=== PATIENT | female | born 1960 | race Caucasian/White ===

== ENCOUNTER 2021-08-26 09:01 | Emergency (ER) | payer BC ==
[~2021-08-26] VITALS: Ht 162.5 cm; Wt 97.5 kg
[2021-08-26 10:07] LABS: BASO % 0.6 % (0.0-1.0); EOS % 0.1 % (1.0-4.0); HEMATOCRIT 40.5 % (37.0-47.0); LYMPH # 1.3 10*3/uL (1.3-4.4); MEAN CELL VOLUME 90.4 fl (81.0-99.0); MEAN CORPUSCULAR HGB 30.4 pg (27.0-31.0); MEAN CORPUSCULAR HGB CONC 33.6 g/dl (33.0-37.0); MEAN PLATELET VOLUME 10.6 fl (9.6-12.3); MONO # 0.7 10*3/uL (0.1-1.0); MONO % 9.8 % (3.0-9.0); NEUT # 4.7 10*3/uL (2.3-7.9); NEUT % 70.1 % (47.0-73.0); PLATELET COUNT AUTOMATED 121 10*3/uL (130-400); RED BLOOD COUNT 4.48 10*6/uL (4.10-5.10); WHITE BLOOD COUNT 6.7 10*3/uL (4.8-10.8)
[2021-08-26 10:20] LABS: ALKALINE PHOSPHATASE 113 U/L (45-117); BUN 23 mg/dl (7-24); CHLORIDE 102 mmol/L (98-107); CREATININE 1.05 mg/dL (0.55-1.02); POTASSIUM 3.8 mmol/L (3.5-5.1); SGOT/AST 30 IU/L (3-35); SGPT/ALT 30 U/L (12-78); SODIUM 134 mmol/L (136-145); TOTAL PROTEIN 6.9 gm/dL (6.4-8.2)
== END 2021-08-26 12:50 | disposition home or self-care (01) ==
LOC: ED 09:01
PROVIDERS: Internal Medicine
DX: U07.1 COVID-19 (principal); Z88.1 Allergy status to other antibiotic agents; Z90.89 Acquired absence of other organs; Z90.711 Acquired absence of uterus with remaining cervical stump

== ENCOUNTER 2022-08-07 08:03 | Emergency (ER) | payer OTHER ==
[~2022-08-07] VITALS: Wt 101.4 kg
[2022-08-07 08:45] LABS: BASO % 0.1 % (0.0-1.0); EOS # 0.2 10*3/uL (0.0-0.4); EOS % 2.6 % (1.0-4.0); HEMATOCRIT 43.3 % (37.0-47.0); LYMPH # 1.1 10*3/uL (1.3-4.4); LYMPH % 11.6 % (27.0-41.0); MEAN CELL VOLUME 84.7 fl (81.0-99.0); MEAN CORPUSCULAR HGB 27.2 pg (27.0-31.0); MEAN CORPUSCULAR HGB CONC 32.1 g/dl (33.0-37.0); MEAN PLATELET VOLUME 10.1 fl (9.6-12.3); MONO # 0.5 10*3/uL (0.1-1.0); MONO % 5.7 % (3.0-9.0); NEUT # 7.4 10*3/uL (2.3-7.9); NEUT % 79.7 % (47.0-73.0); PLATELET COUNT AUTOMATED 135 10*3/uL (130-400); RED BLOOD COUNT 5.11 10*6/uL (4.10-5.10); WHITE BLOOD COUNT 9.3 10*3/uL (4.8-10.8)
[2022-08-07 09:01] LABS: ACT PARTIAL THROMBO TIME 33.1 SECONDS (20.0-32.1)
[2022-08-07 09:03] LABS: ALKALINE PHOSPHATASE 73 U/L (46-116); BUN 33 mg/dl (9-23); CHLORIDE 99 mmol/L (98-107); CREATININE 0.98 mg/dL (0.55-1.02); MYOGLOBIN 290.3 ng/ml (13-71); POTASSIUM 3.8 mmol/L (3.4-5.1); SGPT/ALT 18 U/L (10-49); TOTAL PROTEIN 6.7 gm/dL (6.0-8.0)
== END 2022-08-07 14:45 | disposition short-term general hospital (02) ==
LOC: ED 08:03
PROVIDERS: Family Medicine
DX: I21.4 Non-ST elevation (NSTEMI) myocardial infarction (principal); E16.2 Hypoglycemia, unspecified; Z88.8 Allergy status to other drugs, medicaments and biological substances; Z90.710 Acquired absence of both cervix and uterus; Z98.890 Other specified postprocedural states; Z20.822 Contact with and (suspected) exposure to COVID-19; C50.919 Malignant neoplasm of unspecified site of unspecified female breast; Z88.1 Allergy status to other antibiotic agents

== ENCOUNTER 2024-03-17 22:10 | Emergency (ER) | payer MEDICARE ==
[~2024-03-17] VITALS: Ht 162.5 cm; Wt 108.9 kg
[~2024-03-17 22:10] MED LIST: ASPIRIN ADULT L81 M1 PO; BUMETANIDE1 MG PO; CLOPIDOGREL75 MG PO; CRESTOR5 M1 PO; CYCLOBENZAPRINE10 MG PO; DECARA1250 MCG PO; GLIMEPIRIDE4 M1 PO; HYCODAN 5 MG-1.55 ML PO; JARDIANCE25 MG PO; LANTUS SOL100 UNIT/1 SQ; LOPRESSOR25 MG PO; MIDODRINE HCL5 M1 PO; MIRAPEX0.5 MG PO; NEURONTIN300 MG PO; NEURONTIN600 MG PO; NITROSTAT0.4 MG SL; NOVOLOG100 UNIT/1 SC; PERCOCET 7.5-31 EACH PO; POTASSIUM CHLO10 ME4 PO; PROAIR DIGIHAL90 MCG INH; PROCHLORPERAZIN10 MG PO; PROTONIX40 MG PO; SYNTHROID,LEV175 MCG PO; TRULICITY3 MG/0.5 M SQ; ZITHROMAX250 MG PO
[2024-03-17 22:42] LABS: BASO # 0.1 10*3/uL (0.0-0.1); BASO % 0.6 % (0.0-1.0); EOS # 0.4 10*3/uL (0.0-0.4); EOS % 5.1 % (1.0-4.0); HEMATOCRIT 36.8 % (37.0-47.0); LYMPH # 3.6 10*3/uL (1.3-4.4); MEAN CELL VOLUME 85.8 fl (81.0-99.0); MEAN CORPUSCULAR HGB 28.4 pg (27.0-31.0); MEAN CORPUSCULAR HGB CONC 33.2 g/dl (33.0-37.0); MEAN PLATELET VOLUME 10.1 fl (9.6-12.3); MONO # 0.6 10*3/uL (0.1-1.0); MONO % 6.9 % (3.0-9.0); NEUT % 46.1 % (47.0-73.0); PLATELET COUNT AUTOMATED 152 10*3/uL (130-400); RED BLOOD COUNT 4.29 10*6/uL (4.10-5.10); RED CELL DISTRI WIDTH 16.5 % (0-14.5); WHITE BLOOD COUNT 8.7 10*3/uL (4.8-10.8)
[2024-03-17 23:03] LABS: POTASSIUM 4.1 mmol/L (3.4-5.1); TOTAL PROTEIN 6.6 gm/dL (6.0-8.0)
[2024-03-18] MEDS ORDERED: Ketorolac Tromethamine 30 MG/ML VIAL IM ONE (01:30)
== END 2024-03-18 01:35 | disposition home or self-care (01) ==
LOC: ED 22:10
PROVIDERS: Internal Medicine
DX: R07.89 Other chest pain (principal); R68.84 Jaw pain; I25.2 Old myocardial infarction; N18.9 Chronic kidney disease, unspecified; N17.9 Acute kidney failure, unspecified; Z88.8 Allergy status to other drugs, medicaments and biological substances; Z90.710 Acquired absence of both cervix and uterus; Z98.890 Other specified postprocedural states

== ENCOUNTER 2024-11-06 15:09 | Inpatient (IN) | payer MEDICARE ==
[~2024-11-06] VITALS: Ht 160 cm; Wt 114.8 kg
[2024-11-06 15:13] VITALS: BP 124/59
[2024-11-06] MEDS ORDERED: Dicyclomine Hydrochloride 10 MG CAP PO ONE (15:25)
[2024-11-06] MEDS ORDERED: diphenhydrAMINE hydrochloride 50 MG/ML VIAL IV ONE (15:30)
[2024-11-06] MEDS ORDERED: Metoclopramide Hydrochloride 10 MG/2 ML VIAL IV ONE (15:30)
[2024-11-06] MEDS ORDERED: MORPHINE Sulfate 2 MG/ML SYR IV ONE (15:30)
[2024-11-06] MEDS ORDERED: SODIUM CHLORIDE 0.9% 1,000 ML IV ONE (15:35)
[2024-11-06 15:45] LABS: BASO % 0.2 % (0.0-1.0); EOS # 0.2 10*3/uL (0.0-0.4); EOS % 2.8 % (1.0-4.0); HEMATOCRIT 45.5 % (37.0-47.0); MEAN CELL VOLUME 88.3 fl (81.0-99.0); MEAN CORPUSCULAR HGB 27.2 pg (27.0-31.0); MEAN CORPUSCULAR HGB CONC 30.8 g/dl (33.0-37.0); MONO # 0.6 10*3/uL (0.1-1.0); MONO % 7.6 % (3.0-9.0); NEUT # 4.8 10*3/uL (2.3-7.9); NEUT % 57.8 % (47.0-73.0); PLATELET COUNT AUTOMATED 196 10*3/uL (130-400); RED BLOOD COUNT 5.15 10*6/uL (4.10-5.10); RED CELL DISTRI WIDTH 13.5 % (0-14.5); WHITE BLOOD COUNT 8.3 10*3/uL (4.8-10.8)
[2024-11-06 15:50] LABS: VENOUS BLOOD GAS O2 SAT 52.7 % (60.0-85.0)
[2024-11-06 16:05] LABS: POTASSIUM 4.8 mmol/L (3.4-5.1); TOTAL PROTEIN 7.7 gm/dL (6.0-8.0)
[2024-11-06 16:30] VITALS: BP 121/57
[2024-11-06] MEDS ORDERED: fentaNYL CITRATE 100 MCG/2 ML VIAL IV ONE (16:40)
[2024-11-06] MEDS ORDERED: CYCLOBENZAPRINE5 M3 PO (16:48)
[2024-11-06] MEDS ORDERED: OXYCODONE-ACET1 EACH PO (16:49)
[2024-11-06] MEDS ORDERED: POTASSIUM CHLO10 ME5 PO (16:49)
[2024-11-06] MEDS ORDERED: MOUNJARO2.5 MG/0.1 SQ (16:49)
[2024-11-06] MEDS ORDERED: PLAVIX75 M1 PO (16:50)
[2024-11-06] MEDS ORDERED: TOPIRAMATE25 M1 PO (16:50)
[2024-11-06] MEDS ORDERED: VITAMIN D250 MCG PO (16:51)
[2024-11-06] MEDS ORDERED: LEVOTHYROXINE175 MCG PO (16:51)
[2024-11-06] MEDS ORDERED: ROSUVASTATIN CA40 MG PO (16:51)
[2024-11-06] MEDS ORDERED: GRALISE900 MG PO (16:51)
[2024-11-06] MEDS ORDERED: ACETAMINOPHEN 650 MG SUPP R PRN (18:15)
[2024-11-06] MEDS ORDERED: ACETAMINOPHEN 325 MG TAB PO PRN (18:15)
[2024-11-06] MEDS ORDERED: MORPHINE Sulfate 2 MG/ML SYR IV PRN (18:15)
[2024-11-06] MEDS ORDERED: SODIUM CHLORIDE 0.9% 1,000 ML IV SCH (18:20)
[2024-11-06] MEDS ORDERED: Prochlorperazine Edisylate 10 MG/2 ML VIAL IV PRN (18:20)
[2024-11-06 19:11] VITALS: BP 122/57
[2024-11-06] MEDS ORDERED: Cyclobenzaprine Hydrochlorid 10 MG TAB PO PRN (19:55)
[2024-11-06 21:12] VITALS: BP 131/53
[2024-11-06 21:30] VITALS: BP 118/47
[2024-11-06] MEDS ORDERED: GABAPENTIN 300 MG CAP PO SCH (22:00)
[2024-11-07] MEDS ORDERED: Levothyroxine Sodium 175 MCG TAB PO SCH (06:00)
[2024-11-07] MEDS ORDERED: Pantoprazole Sodium 40 MG TAB PO SCH (06:00)
[2024-11-07 06:43] LABS: FREE T4 0.88 ng/dl (0.89-1.76); TOTAL PROTEIN 6.4 gm/dL (6.0-8.0); VITAMIN D, 25-HYDROXY 33.5 ng/mL (30-100)
[2024-11-07 06:45] LABS: POTASSIUM 3.6 mmol/L (3.4-5.1)
[2024-11-07 06:47] LABS: BASO % 0.1 % (0.0-1.0); EOS # 0.4 10*3/uL (0.0-0.4); EOS % 4.6 % (1.0-4.0); HEMATOCRIT 36.2 % (37.0-47.0); MEAN CELL VOLUME 86.6 fl (81.0-99.0); MEAN CORPUSCULAR HGB 28.2 pg (27.0-31.0); MEAN CORPUSCULAR HGB CONC 32.6 g/dl (33.0-37.0); MEAN PLATELET VOLUME 10.6 fl (9.6-12.3); MONO # 0.9 10*3/uL (0.1-1.0); MONO % 10.5 % (3.0-9.0); NEUT # 4.1 10*3/uL (2.3-7.9); NEUT % 49.2 % (47.0-73.0); PLATELET COUNT AUTOMATED 167 10*3/uL (130-400); RED BLOOD COUNT 4.18 10*6/uL (4.10-5.10); RED CELL DISTRI WIDTH 14.2 % (0-14.5); WHITE BLOOD COUNT 8.3 10*3/uL (4.8-10.8)
[2024-11-07 08:00] VITALS: BP 105/54
[2024-11-07] MEDS ORDERED: TOPIRAMATE 25 MG TAB PO SCH (10:00)
[2024-11-07] MEDS ORDERED: Clopidogrel Hydrogen Sulfate 75 MG TAB PO SCH (10:00)
[2024-11-07] MEDS ORDERED: Enoxaparin Sodium 40 MG/0.4 ML SYR SC SCH (10:00)
[2024-11-07] MEDS ORDERED: Rosuvastatin Calcium 10 MG TABLET PO SCH (10:00)
[2024-11-07] MEDS ORDERED: SODIUM CHLORIDE 0.9% 1,000 ML IV ONE (11:35)
[2024-11-07 12:00] VITALS: BP 103/43
[2024-11-07 14:36] LABS: BILIRUBIN Negative (Negative); BLOOD Negative (Negative); CLARITY Clear (Clear); COLOR Yellow (Yellow); GLUCOSE Negative (Negative); KETONE Trace (Negative); LEUKO ESTERASE 1+ (Negative); NITRITE Negative (Negative); SPECIFIC GRAVITY 1.025 (1.001-1.030); UROBILINOGEN 0.2 E.U./dl (0.0-1.0)
[2024-11-07 14:47] LABS: BACTERIA 2+
[2024-11-07 16:00] VITALS: BP 136/60
[2024-11-07 20:00] VITALS: BP 128/54
[2024-11-07] MEDS ORDERED: VANCOMYCIN HCL 125 MG CAPSULE PO SCH (22:00)
[2024-11-08] VITALS: BP 135/56
[2024-11-08] MEDS ORDERED: Levothyroxine Sodium 200 MCG TAB PO SCH (06:00)
[2024-11-08 06:25] LABS: BASO % 0.1 % (0.0-1.0); EOS # 0.4 10*3/uL (0.0-0.4); EOS % 5.4 % (1.0-4.0); HEMATOCRIT 36.8 % (37.0-47.0); MEAN CELL VOLUME 86.2 fl (81.0-99.0); MEAN CORPUSCULAR HGB 27.9 pg (27.0-31.0); MEAN CORPUSCULAR HGB CONC 32.3 g/dl (33.0-37.0); MEAN PLATELET VOLUME 10.2 fl (9.6-12.3); MONO # 0.6 10*3/uL (0.1-1.0); MONO % 7.7 % (3.0-9.0); NEUT # 4.1 10*3/uL (2.3-7.9); NEUT % 49.8 % (47.0-73.0); PLATELET COUNT AUTOMATED 187 10*3/uL (130-400); RED BLOOD COUNT 4.27 10*6/uL (4.10-5.10); RED CELL DISTRI WIDTH 13.7 % (0-14.5); WHITE BLOOD COUNT 8.2 10*3/uL (4.8-10.8)
[2024-11-08 07:13] LABS: POTASSIUM 3.5 mmol/L (3.4-5.1)
[2024-11-08 08:00] VITALS: BP 110/33
[2024-11-08 12:00] VITALS: BP 139/54
[2024-11-08 16:00] VITALS: BP 125/54
[2024-11-08 20:00] VITALS: BP 125/54; BP 139/61
[2024-11-09] VITALS: BP 127/57; BP 136/63
[2024-11-09 04:00] VITALS: BP 123/58
[2024-11-09 05:42] LABS: POTASSIUM 3.2 mmol/L (3.4-5.1)
[2024-11-09 07:07] LABS: BASO % 0.1 % (0.0-1.0); EOS # 0.4 10*3/uL (0.0-0.4); EOS % 5.7 % (1.0-4.0); HEMATOCRIT 35.9 % (37.0-47.0); MEAN CELL VOLUME 86.7 fl (81.0-99.0); MEAN CORPUSCULAR HGB 27.8 pg (27.0-31.0); MEAN PLATELET VOLUME 10.2 fl (9.6-12.3); MONO # 0.5 10*3/uL (0.1-1.0); MONO % 7.6 % (3.0-9.0); NEUT # 3.5 10*3/uL (2.3-7.9); NEUT % 50.1 % (47.0-73.0); PLATELET COUNT AUTOMATED 182 10*3/uL (130-400); RED BLOOD COUNT 4.14 10*6/uL (4.10-5.10); RED CELL DISTRI WIDTH 13.8 % (0-14.5)
[2024-11-09] MEDS ORDERED: POTASSIUM CHLORIDE 20 MEQ TAB PO ONE (07:25)
[2024-11-09 08:00] VITALS: BP 111/52
[2024-11-09 12:00] VITALS: BP 126/56
[2024-11-09] MEDS ORDERED: VANCOMYCIN HCL125 MG PO (12:12)
== END 2024-11-09 14:30 | disposition home or self-care (01) | DRG 371 ==
LOC: ED 15:09 → 4E 17:50 → EDHOLD 17:50 → 4E 20:48
PROVIDERS: Internal Medicine; Physician Assistant Medical; Student in an Organized Health Care Education/Training Program; ADMIT Family Medicine; ATTEND Family Medicine
DX: A04.72 Enterocolitis due to Clostridium difficile, not specified as recurrent (principal); N17.0 Acute kidney failure with tubular necrosis; E87.20 Acidosis, unspecified; I25.811 Atherosclerosis of native coronary artery of transplanted heart without angina pectoris; E89.0 Postprocedural hypothyroidism; E11.65 Type 2 diabetes mellitus with hyperglycemia; D64.9 Anemia, unspecified; Z86.73 Personal history of transient ischemic attack (TIA), and cerebral infarction without residual deficits; I25.2 Old myocardial infarction; Z85.3 Personal history of malignant neoplasm of breast; Z79.4 Long term (current) use of insulin; Z92.21 Personal history of antineoplastic chemotherapy; Z88.1 Allergy status to other antibiotic agents; Z79.899 Other long term (current) drug therapy; Z79.1 Long term (current) use of non-steroidal anti-inflammatories (NSAID); Z95.5 Presence of coronary angioplasty implant and graft; Z90.710 Acquired absence of both cervix and uterus

== ENCOUNTER 2025-01-12 16:51 | Emergency (ER) | payer MEDICARE ==
[~2025-01-12] VITALS: Ht 162.5 cm; Wt 113.4 kg
[~2025-01-12 16:51] MED LIST changes: +CYCLOBENZAPRINE5 M3 PO; +GRALISE900 MG PO; +LEVOTHYROXINE175 MCG PO; +MOUNJARO2.5 MG/0.1 SQ; +OXYCODONE-ACET1 EACH PO; +PLAVIX75 M1 PO; +POTASSIUM CHLO10 ME5 PO; +ROSUVASTATIN CA40 MG PO; +TOPIRAMATE25 M1 PO; +VANCOMYCIN HCL125 MG PO; +VITAMIN D250 MCG PO
[2025-01-12] MEDS ORDERED: Metoclopramide Hydrochloride 10 MG/2 ML VIAL IV ONE (17:20)
[2025-01-12] MEDS ORDERED: Dexamethasone Sodium Phospha 20 MG/5 ML VIAL IV ONE (17:20)
[2025-01-12] MEDS ORDERED: SODIUM CHLORIDE 0.9% 1,000 ML IV ONE (17:20)
[2025-01-12] MEDS ORDERED: Ketorolac Tromethamine 30 MG/ML VIAL IV ONE (17:20)
[2025-01-12] MEDS ORDERED: diphenhydrAMINE hydrochloride 50 MG/ML VIAL IV ONE (17:20)
[2025-01-12] MEDS ORDERED: fentaNYL CITRATE 100 MCG/2 ML VIAL IV ONE (19:00)
== END 2025-01-12 19:57 | disposition home or self-care (01) ==
LOC: ED 16:51
DX: R51.9 Headache, unspecified (principal); L72.9 Follicular cyst of the skin and subcutaneous tissue, unspecified; R42 Dizziness and giddiness; R11.0 Nausea; I25.10 Atherosclerotic heart disease of native coronary artery without angina pectoris; E78.5 Hyperlipidemia, unspecified; E11.9 Type 2 diabetes mellitus without complications; I25.2 Old myocardial infarction; Z88.1 Allergy status to other antibiotic agents; Z88.8 Allergy status to other drugs, medicaments and biological substances; Z79.899 Other long term (current) drug therapy; Z98.890 Other specified postprocedural states; Z95.5 Presence of coronary angioplasty implant and graft; Z90.711 Acquired absence of uterus with remaining cervical stump; Z86.73 Personal history of transient ischemic attack (TIA), and cerebral infarction without residual deficits; Z85.850 Personal history of malignant neoplasm of thyroid; Z85.3 Personal history of malignant neoplasm of breast